=== PATIENT | female | born 1950 | race Caucasian/White ===

== ENCOUNTER 2017-10-19 15:41 | Emergency (ER) | payer MEDICARE, OTHER ==
--- NOTE | 2017-10-19 17:08 | EDM.PDOC ---
ED HPI GENERAL MEDICAL PROBLEM - General Chief Complaint: Lower Extremity Injury/Pain Stated Complaint: FELL AND HURT RT ANKLE Time Seen by Provider: 10/19/17 17:04 Source of Information: Reports: Patient, Family, RN Notes Reviewed History Limitations: Reports: No Limitations - History of Present Illness INITIAL COMMENTS - FREE TEXT/NARRATIVE: 67-year-old female presents to the emergency department today with complaint of right ankle pain, she states she injured herself on a ladder earlier today when she slipped off the second rung. 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: - Infectious Disease History Infectious Disease History: Reports: Measles, Mumps Social & Family History - Tobacco Use Smoking Status *Q: Never Smoker - Caffeine Use Caffeine Use: Reports: Coffee - Recreational Drug Use Recreational Drug Use: No Review of Systems - Review of Systems Review Of Systems: See Below Musculoskeletal: Reports: Joint Pain (Right ankle pain) Skin: Reports: Bruising Neurological: Reports: No Symptoms ED EXAM, GENERAL - Physical Exam Exam: See Below Free Text/Narrative:: Examination of the right ankle I do appreciate some ecchymosis with some edema on the lateral malleolus she is tender to the touch over the lateral malleolus pedal pulse is +2 she cannot bear weight sensation is intact Exam Limited By: No Limitations General Appearance: Alert, WD/WN, No Apparent Distress Respiratory/Chest: No Respiratory Distress ED TRAUMA EXTREMITY PROCEDURES - Splinting Right Lower Extremity Splint Site: Ankle Pre-Procedure NV Status: Normal Post-Procedure NV Status: Normal Splint Material: Fiberglass Splint Design: Posterior Applied & Form Fitted By: Provider Provider Post-Splint Application NV Check: NV Status Normal, Good Position Complications: No Course - Vital Signs Last Recorded V/S: Last Vital Signs Temp 95.7 F 10/19/17 17:03 Pulse 80 10/19/17 17:03 Resp 16 10/19/17 17:03 BP 122/63 10/19/17 17:03 Pulse Ox 98 10/19/17 17:03 - Orders/Labs/Meds Orders: Active Orders 24 hr Category Date Time Status Ankle Min 3V Rt [CR] Stat Exams 10/19/17 17:05 Taken Departure - Departure Time of Disposition: 18:02 Disposition: Home, Self-Care 01 Condition: Good Clinical Impression: Fracture of tibia, distal, right, closed Qualifiers: Encounter type: initial encounter Fracture morphology: other fracture Qualified Code(s): S82.391A - Other fracture of lower end of right tibia, initial encounter for closed fracture - Discharge Information Referrals: Pati Dunham MD [Primary Care Provider] - Forms: ED Department Discharge Additional Instructions: Please follow-up with orthopedics on Wednesday for further evaluation, continue use Tylenol or Motrin as needed for pain control, use hydrocodone for breakthrough pain, do not exceed 4000 mg of Tylenol in a 24-hour period - My Orders Last 24 Hours: My Active Orders 10/19/17 17:05 Ankle Min 3V Rt [CR] Stat - Assessment/Plan Last 24 Hours: My Active Orders 10/19/17 17:05 Ankle Min 3V Rt [CR] Stat Plan: Assessment Acuity = acute Site and laterality = fracture distal tibia closed right Etiology = secondary to twisting injury follow-up ladder trauma Manifestations = none Location of injury = Home Lab values = x-ray describes fracture above Plan Called discussed case with Dr. Camilo orthopedics he agreed to evaluate her in clinic follow-up on Wednesday she was placed in a posterior splint hydrocodone 5/ 325 one tab by mouth 3 times a day when necessary total #6 provided for pain control This note was dictated using [employer] voice recognition software please call with any questions on syntax or grammar.
--- NOTE | 2017-10-20 13:08 | CR ---
Ankle Min 3V Rt INDICATION: pain twist FINDINGS: Acute, minimally displaced, intra-articular fracture through the medial malleolus. Soft tis saurav swelling about the right ankle.
== END 2017-10-19 18:13 | disposition home or self-care (01) ==
LOC: JP.ED 15:41
DX: S82.391A Other fracture of lower end of right tibia, initial encounter for closed fracture (principal); Z88.8 Allergy status to other drugs, medicaments and biological substances; W11.XXXA Fall on and from ladder, initial encounter
CPT/HCPCS: 29515; 73610-26-RT; 73610-RT; 99284

== ENCOUNTER 2019-11-16 08:50 | Emergency (ER) | payer MEDICARE, OTHER ==
[2019-11-16] MEDS ORDERED: Ketorolac 60 MG/2 ML SDV IM ONE (09:19)
--- NOTE | 2019-11-16 09:22 | EDM.PDOC ---
ED HPI GENERAL MEDICAL PROBLEM - General Chief Complaint: General Stated Complaint: BODY ACHES, FEVER 100.3, SORE THROAT, HEADACHES Time Seen by Provider: 11/16/19 09:11 Source of Information: Reports: Patient, RN Notes Reviewed History Limitations: Reports: No Limitations - History of Present Illness INITIAL COMMENTS - FREE TEXT/NARRATIVE: 69-year-old female presents emergency department today complaint of fever body aches and sore throat, she has been ill for about 4 days poor oral intake she did have a potential exposure as she attended the about 7 days ago estim ate 100 people at this . Generalized Pain Score (Numeric/FACES): 10 - Related Data Allergies Allergy/AdvReac Type Severity Reaction Status Date / Time benzoin Allergy Blisters Verified 11/16/19 09:00 Home Meds: Home Meds Citalopram [Citalopram HBr] 10 mg PO DAILY 10/19/17 [History] Past Medical History HEENT History: Reports: Impaired Vision [employer] History: Reports: Musculoskeletal History: Reports: Fracture Other Musculoskeletal History: right distal tib FX - Infectious Disease History Infectious Disease History: Reports: Chicken Pox Social & Family History - Tobacco Use Smoking Status *Q: Never Smoker Second Hand Smoke Exposure: No - Caffeine Use Caffeine Use: Reports: Coffee, Tea - Alcohol Use Days Per Week of Alcohol Use: 4 Number of Drinks Per Day: 1 Total Drinks Per Week: 4 - Recreational Drug Use Recreational Drug Use: No ED ROS GENERAL - Review of Systems Review Of Systems: See Below Constitutional: Reports: Fever, Chills HEENT: Reports: Throat Pain Respiratory: Reports: No Symptoms Cardiovascular: Reports: No Symptoms GI/Abdominal: Reports: No Symptoms : Reports: No Symptoms Musculoskeletal: Reports: Muscle Pain (Body aches) ED EXAM, GENERAL - Physical Exam Exam: See Below Exam Limited By: No Limitations General Appearance: Alert, WD/WN, No Apparent Distress Eye Exam: Bilateral Eye: PERRL Ears: Normal External Exam, Normal Canal, Hearing Grossly Normal, Normal TMs Nose: Normal Inspection, Normal Mucosa, No Blood Throat/Mouth: Normal Inspection, Normal Lips, Normal Teeth, Normal Gums, Normal Oropharynx, Normal Voice, No Airway Compromise, Other (Pemphigoid superior pal ate) Head: Atraumatic, Normocephalic Neck: Normal Inspection, Supple, Non-Tender, Full Range of Motion Respiratory/Chest: No Respiratory Distress, Lungs Clear, Normal Breath Sounds, No Accessory Muscle Use, Chest Non-Tender Cardiovascular: No Murmur, Tachycardia GI/Abdominal: Soft, Non-Tender Back Exam: Normal Inspection, Full Range of Motion. No: CVA Tenderness (R), CVA Tenderness (L) Extremities: No Pedal Edema Course - Vital Signs Last Recorded V/S: Last Vital Signs Temp 98.6 F 11/16/19 10:32 Pulse 90 11/16/19 10:32 Resp 22 H 11/16/19 10:32 BP 96/51 L 11/16/19 10:32 Pulse Ox 91 L 11/16/19 10:32 - Orders/Labs/Meds Orders: Active Orders 24 hr Category Date Time Status CORONAVIRUS COVID-19, CANDY Stat Lab 11/16/19 09:30 Received Isolation [COMM] Routine Oth 11/16/19 09:18 Ordered Labs: Laboratory Tests 11/16/19 11/16/19 11/16/19 Range/Units 09:17 09:34 09:34 WBC 4.5 (4.5-11.0) K/uL RBC 3.96 (3.30-5.50) M/uL Hgb 12.4 (12.0-15.0) g/dL Hct 35.8 L (36.0-48.0) % MCV 90 (80-98) fL MCH 31 (27-31) pg MCHC 35 (32-36) % Plt Count 64 L (150-400) K/uL Add Manual Diff Yes Neutrophils % (Manual) 43 (36-66) % Band Neutrophils % 54 H (5-11) % Lymphocytes % (Manual) 1 L (24-44) % Metamyelocytes % 2 % Sodium (140-148) mmol/L Potassium (3.6-5.2) mmol/L Chloride (100-108) mmol/L Carbon Dioxide (21-32) mmol/L Anion Gap (5.0-14.0) mmol/L BUN (7-18) mg/dL Creatinine (0.6-1.0) mg/dL Est Cr Clr Drug Dosing mL/min Estimated GFR (MDRD) (>60) Glucose (74-106) mg/dL Lactic Acid (0.4-2.0) mmol/L Calcium (8.5-10.1) mg/dL Total Bilirubin (0.2-1.0) mg/dL AST (15-37) U/L ALT (12-78) U/L Alkaline Phosphatase (46-116) U/L Lactate Dehydrogenase 472 H (82-234) U/L C-Reactive Protein > 25.00 H (0.0-0.3) mg/dL Total Protein (6.4-8.2) g/dL Albumin (3.4-5.0) g/dL Globulin (2.3-3.5) g/dL Albumin/Globulin Ratio (1.2-2.2) Procalcitonin 5.32 H* ng/mL 11/16/19 11/16/19 Range/Units 09:34 09:46 WBC (4.5-11.0) K/uL RBC (3.30-5.50) M/uL Hgb (12.0-15.0) g/dL Hct (36.0-48.0) % MCV (80-98) fL MCH (27-31) pg MCHC (32-36) % Plt Count (150-400) K/uL Add Manual Diff Neutrophils % (Manual) (36-66) % Band Neutrophils % (5-11) % Lymphocytes % (Manual) (24-44) % Metamyelocytes % % Sodium 131 L (140-148) mmol/L Potassium 3.2 L (3.6-5.2) mmol/L Chloride 95 L (100-108) mmol/L Carbon Dioxide 26 (21-32) mmol/L Anion Gap 13.2 (5.0-14.0) mmol/L BUN 17 (7-18) mg/dL Creatinine 1.2 H (0.6-1.0) mg/dL Est Cr Clr Drug Dosing 42.00 mL/min Estimated GFR (MDRD) 45 L (>60) Glucose 153 H (74-106) mg/dL Lactic Acid 2.3 H (0.4-2.0) mmol/L Calcium 8.1 L (8.5-10.1) mg/dL Total Bilirubin 2.0 H (0.2-1.0) mg/dL AST 101 H (15-37) U/L ALT 93 H (12-78) U/L Alkaline Phosphatase 122 H (46-116) U/L Lactate Dehydrogenase (82-234) U/L C-Reactive Protein (0.0-0.3) mg/dL Total Protein 6.2 L (6.4-8.2) g/dL Albumin 3.2 L (3.4-5.0) g/dL Globulin 3.0 (2.3-3.5) g/dL Albumin/Globulin Ratio 1.1 L (1.2-2.2) Procalcitonin ng/mL Meds: Medications Discontinued Medications Generic Name Dose Route Start Last Admin Trade Name Cherry PRN Reason Stop Dose Admin Ketorolac Tromethamine 60 mg 11/16/19 09:19 11/16/19 09:34 Toradol IM 11/16/19 09:20 60 mg ONETIME ONE Administration Departure - Departure Time of Disposition: 10:46 Disposition: Home, Self-Care 01 Condition: Fair Clinical Impression: Body aches - Discharge Information Referrals: PCP,None [Primary Care Provider] - Forms: ED Department Discharge Additional Instructions: Take full course of antibiotics use Tylenol Motrin as needed, please followup with your primary care provider in 3-5 days if not better, please call return to the emergency department with worsening of symptoms. Sepsis Event Note (ED) - Evaluation Sepsis Screening Result: Possible Sepsis Risk - Focused Exam Vital Signs: Vital Signs Temp Pulse Resp BP Pulse Ox 11/16/19 10:32 98.6 F 90 22 H 96/51 L 91 L 11/16/19 09:08 99.4 F 101 H 21 H 108/54 L 97 11/16/19 08:56 99.4 F 101 H 21 H 108/54 L 97 - My Orders Last 24 Hours: My Active Orders 11/16/19 09:18 Isolation [COMM] Routine 11/16/19 09:30 CORONAVIRUS COVID-19, CANDY Stat - Assessment/Plan Last 24 Hours: My Active Orders 11/16/19 09:18 Isolation [COMM] Routine 11/16/19 09:30 CORONAVIRUS COVID-19, CANDY Stat Plan: Assessment Acuity = acute Site and laterality = tickborne illness 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 Manifestations = fever, body aches Location of injury = Home Lab values = White count normal at 4.5 platelets low at 64 consistent t hrombocytopenia sodium low at 131 consistent hyponatremia potassium low at 3.2 consistent with hypokalemia creatinine elevated 1.2 consistent with acute renal failure stage G3 a lactic acid slightly elevated 2.3 calcium low at 8.1 consistent with hypocalcemia total bilirubin elevated 2.0 consistent with hyperbilirubinemia AST 101 ALT 93 consistent with elevated liver enzymes elevated LDH at 472 CRP markedly elevated greater than 25 procalcitonin elevated 5.37 chest x-ray reveals no acute process COVID is pending Plan I did review lab work with her she had a possible exposure of COVID with a large gathering at a about a week ago however her lab work is more consistent with an anaplasmosis type picture therefore elected to treat her empirically doxycycline 100 mg p.o. twice daily x14 days when the results of the COVID test become available we will contact her if it is positive she will stop the antibiotics if it is negative recommend she continue the antibiotics follow-up primary care in 5 to 7 days if no improvement This note was dictated using [employer] voice recognition software please call with any questions on syntax or grammar.
--- NOTE | 2019-11-16 10:14 | CR ---
CHEST: 2 view CLINICAL HISTORY:Fever COMPARISON:None FINDINGS: The heart size, pulmonary vascularity and hilar structures are normal. No infiltrate effusion or pneumothorax is seen. There are atherosclerotic changes in the aorta.. There is flattening of the hemidiaphragms. IMPRESSION: No acute cardiopulmonary process. Hyperaeration
== END 2019-11-16 11:04 | disposition home or self-care (01) ==
LOC: JP.ED 08:50
DX: R52 Pain, unspecified (principal); Z91.09 Other allergy status, other than to drugs and biological substances; Z79.899 Other long term (current) drug therapy
CPT/HCPCS: 36415; 71046; 80053; 83605; 83615; 84145; 85025; 86140; 87804; 96372; 99283; J1885; U0002

== ENCOUNTER 2019-11-17 15:01 | Inpatient (IN) | payer MEDICARE, OTHER ==
[2019-11-17] MEDS ORDERED: Lactated Ringers 1,000 ML IV ONE (16:03)
[2019-11-17] MEDS ORDERED: Doxycycline 100 MG in Sodium Chloride 0.9% 100 ML IV ONE (16:04)
[2019-11-17] MEDS ORDERED: Sodium Chloride 0.9% 10 ML Syringe FLUSH PRN (16:04)
[2019-11-17] MEDS ORDERED: Ondansetron 4 MG/2 ML SDV IVPUSH ONE (16:04)
--- NOTE | 2019-11-17 16:09 | EDM.PDOC ---
ED HPI GENERAL MEDICAL PROBLEM - General Chief Complaint: Gastrointestinal Problem Stated Complaint: VOMITING, FEVER, DIARRHEA Time Seen by Provider: 11/17/19 15:53 Source of Information: Reports: Patient, Family, Old Records, RN Notes Reviewed History Limitations: Reports: No Limitations - History of Present Illness INITIAL COMMENTS - FREE TEXT/NARRATIVE: 69-year-old female presents emergency department a complaint of nausea and vomiting unable to keep fluids down. I had the opportunity to see her yesterday please see prior note for details briefly she has been ill for several days fever sore throat body aches she had attended a large gathering about a week ago yesterday extensive blood work suspicious for tickborne illness COVID is pending influenza was negative. Elected to treat empirically however she is only been able to keep 1 dose of doxycycline down because of the nausea and vomiting which is persisted. - Related Data Allergies Allergy/AdvReac Type Severity Reaction Status Date / Time benzoin Allergy Blisters Verified 11/17/19 15:33 Home Meds: Home Meds Citalopram [Citalopram HBr] 10 mg PO DAILY 10/19/17 [History] Doxycycline [Vibramycin] 1 tab PO DAILY 11/17/19 [History] Past Medical History HEENT History: Reports: Impaired Vision [employer] History: Reports: Musculoskeletal History: Reports: Fracture Other Musculoskeletal History: right distal tib FX - Infectious Disease History Infectious Disease History: Reports: Chicken Pox Social & Family History - Tobacco Use Smoking Status *Q: Never Smoker - Caffeine Use Caffeine Use: Reports: Coffee, Tea ED ROS GENERAL - Review of Systems Review Of Systems: See Below Constitutional: Reports: Fever, Chills, Fatigue HEENT: Reports: Throat Pain, Throat Swelling Respiratory: Reports: No Symptoms Cardiovascular: Reports: No Symptoms GI/Abdominal: Reports: No Symptoms Musculoskeletal: Reports: Muscle Pain ED EXAM, GENERAL - Physical Exam Exam: See Below Exam Limited By: No Limitations General Appearance: Alert, WD/WN, No Apparent Distress Neck: Normal Inspection, Supple, Non-Tender, Full Range of Motion Respiratory/Chest: No Respiratory Distress, Lungs Clear, Normal Breath Sounds, No Accessory Muscle Use, Chest Non-Tender Cardiovascular: Regular Rate, Rhythm, No Murmur GI/Abdominal: Soft, Non-Tender Extremities: No Pedal Edema Course - Vital Signs Last Recorded V/S: Last Vital Signs Temp 97.4 F 11/17/19 15:42 Pulse 71 11/17/19 17:19 Resp 14 11/17/19 15:42 BP 119/54 L 11/17/19 17:19 Pulse Ox 96 11/17/19 17:19 - Orders/Labs/Meds Orders: Active Orders 24 hr Category Date Time Status Peripheral IV Care [RC] . DIRECTED Care 11/17/19 16:04 Active Potassium Chloride [KCL 20 MEQ in Water 100 ML] 20 meq Med 11/17/19 17:00 Active Premix Bag 1 bag IV ONETIME Sodium Chloride 0.9% [Saline Flush] Med 11/17/19 16:04 Active 10 ml FLUSH ASDIRECTED PRN Peripheral IV Insertion Adult [OM.PC] Urgent Oth 11/17/19 16:03 Ordered Medication Orders Potassium Chloride 20 meq/ (Premix) 100 mls @ 50 mls/hr IV ONETIME ONE Stop: 11/17/19 18:59 Last Admin: 11/17/19 17:36 Dose: 50 mls/hr Documented by: STELLA Sodium Chloride (Saline Flush) 10 ml FLUSH ASDIRECTED PRN PRN Reason: Keep Vein Open Last Admin: 11/17/19 16:27 Dose: 10 ml Documented by: STELLA Labs: Laboratory Tests 11/17/19 11/17/19 11/17/19 Range/Units 16:22 16:22 16:22 WBC 2.7 L (4.5-11.0) K/uL RBC 4.20 (3.30-5.50) M/uL Hgb 13.2 (12.0-15.0) g/dL Hct 37.1 (36.0-48.0) % MCV 88 (80-98) fL MCH 31 (27-31) pg MCHC 36 (32-36) % Plt Count 40 L (150-400) K/uL Add Manual Diff Yes Neutrophils % (Manual) 68 H (36-66) % Band Neutrophils % 10 (5-11) % Lymphocytes % (Manual) 12 L (24-44) % Monocytes % (Manual) 10 H (2-6) % Sodium 133 L (140-148) mmol/L Potassium 2.8 L* (3.6-5.2) mmol/L Chloride 95 L (100-108) mmol/L Carbon Dioxide 29 (21-32) mmol/L Anion Gap 11.8 (5.0-14.0) mmol/L BUN 21 H (7-18) mg/dL Creatinine 1.0 (0.6-1.0) mg/dL Est Cr Clr Drug Dosing 50.41 mL/min Estimated GFR (MDRD) 55 L (>60) Glucose 101 (74-106) mg/dL Lactic Acid 1.0 (0.4-2.0) mmol/L Calcium 8.3 L (8.5-10.1) mg/dL Magnesium (1.8-2.4) mg/dL Total Bilirubin 2.1 H (0.2-1.0) mg/dL AST 129 H (15-37) U/L ALT 140 H (12-78) U/L Alkaline Phosphatase 309 H D (46-116) U/L Lactate Dehydrogenase (82-234) U/L C-Reactive Protein (0.0-0.3) mg/dL Total Protein 6.4 (6.4-8.2) g/dL Albumin 3.3 L (3.4-5.0) g/dL Globulin 3.1 (2.3-3.5) g/dL Albumin/Globulin Ratio 1.1 L (1.2-2.2) Procalcitonin ng/mL 11/17/19 11/17/19 11/17/19 Range/Units 16:22 16:22 16:22 WBC (4.5-11.0) K/uL RBC (3.30-5.50) M/uL Hgb (12.0-15.0) g/dL Hct (36.0-48.0) % MCV (80-98) fL MCH (27-31) pg MCHC (32-36) % Plt Count (150-400) K/uL Add Manual Diff Neutrophils % (Manual) (36-66) % Band Neutrophils % (5-11) % Lymphocytes % (Manual) (24-44) % Monocytes % (Manual) (2-6) % Sodium (140-148) mmol/L Potassium (3.6-5.2) mmol/L Chloride (100-108) mmol/L Carbon Dioxide (21-32) mmol/L Anion Gap (5.0-14.0) mmol/L BUN (7-18) mg/dL Creatinine (0.6-1.0) mg/dL Est Cr Clr Drug Dosing mL/min Estimated GFR (MDRD) (>60) Glucose (74-106) mg/dL Lactic Acid (0.4-2.0) mmol/L Calcium (8.5-10.1) mg/dL Magnesium (1.8-2.4) mg/dL Total Bilirubin (0.2-1.0) mg/dL AST (15-37) U/L ALT (12-78) U/L Alkaline Phosphatase (46-116) U/L Lactate Dehydrogenase 483 H (82-234) U/L C-Reactive Protein 26.08 H (0.0-0.3) mg/dL Total Protein (6.4-8.2) g/dL Albumin (3.4-5.0) g/dL Globulin (2.3-3.5) g/dL Albumin/Globulin Ratio (1.2-2.2) Procalcitonin 5.58 H* ng/mL 11/17/19 Range/Units 17:26 WBC (4.5-11.0) K/uL RBC (3.30-5.50) M/uL Hgb (12.0-15.0) g/dL Hct (36.0-48.0) % MCV (80-98) fL MCH (27-31) pg MCHC (32-36) % Plt Count (150-400) K/uL Add Manual Diff Neutrophils % (Manual) (36-66) % Band Neutrophils % (5-11) % Lymphocytes % (Manual) (24-44) % Monocytes % (Manual) (2-6) % Sodium (140-148) mmol/L Potassium (3.6-5.2) mmol/L Chloride (100-108) mmol/L Carbon Dioxide (21-32) mmol/L Anion Gap (5.0-14.0) mmol/L BUN (7-18) mg/dL Creatinine (0.6-1.0) mg/dL Est Cr Clr Drug Dosing mL/min Estimated GFR (MDRD) (>60) Glucose (74-106) mg/dL Lactic Acid (0.4-2.0) mmol/L Calcium (8.5-10.1) mg/dL Magnesium 2.1 (1.8-2.4) mg/dL Total Bilirubin (0.2-1.0) mg/dL AST (15-37) U/L ALT (12-78) U/L Alkaline Phosphatase (46-116) U/L Lactate Dehydrogenase (82-234) U/L C-Reactive Protein (0.0-0.3) mg/dL Total Protein (6.4-8.2) g/dL Albumin (3.4-5.0) g/dL Globulin (2.3-3.5) g/dL Albumin/Globulin Ratio (1.2-2.2) Procalcitonin ng/mL Meds: Medications Generic Name Dose Route Start Last Admin Trade Name Freq PRN Reason Stop Dose Admin Potassium Chloride 20 meq/ 100 mls @ 50 mls/hr 11/17/19 17:00 11/17/19 17:36 Premix IV 11/17/19 18:59 50 mls/hr ONETIME ONE Administration Sodium Chloride 10 ml 11/17/19 16:04 11/17/19 16:27 Saline Flush FLUSH 10 ml ASDIRECTED PRN Administration Keep Vein Open Discontinued Medications Generic Name Dose Route Start Last Admin Trade Name Freq PRN Reason Stop Dose Admin Lactated Ringer's 1,000 mls @ 999 mls/hr 11/17/19 16:03 11/17/19 16:27 Ringers, Lactated IV 11/17/19 17:03 999 mls/hr BOLUS ONE Administration Doxycycline Hyclate 100 mg/ 100 mls @ 100 mls/hr 11/17/19 16:04 11/17/19 16:28 Sodium Chloride IV 11/17/19 17:03 100 mls/hr ONETIME ONE Administration Ondansetron HCl 4 mg 11/17/19 16:04 11/17/19 16:27 Zofran IVPUSH 11/17/19 16:05 4 mg ONETIME ONE Administration Potassium Chloride 40 meq 11/17/19 17:00 11/17/19 17:35 Klor-Con M20 PO 11/17/19 17:01 40 meq ONETIME ONE Administration Departure - Departure Time of Disposition: 18:07 Disposition: Admitted As Inpatient 67 Condition: Fair Clinical Impression: Anaplasmosis - Discharge Information Referrals: PCP,None [Primary Care Provider] - Forms: ED Department Discharge Sepsis Event Note (ED) - Evaluation Sepsis Screening Result: No Definite Risk - Focused Exam Vital Signs: Vital Signs Temp Pulse Resp BP Pulse Ox 11/17/19 17:19 71 119/54 L 96 11/17/19 15:42 97.4 F 72 14 115/72 98 - My Orders Last 24 Hours: My Active Orders 11/17/19 16:03 Peripheral IV Insertion Adult [OM.PC] Urgent 11/17/19 16:04 Peripheral IV Care [RC] . DIRECTED Sodium Chloride 0.9% [Saline Flush] 10 ml FLUSH ASDIRECTED PRN 11/17/19 17:00 Potassium Chloride [KCL 20 MEQ in Water 100 ML] 20 meq Premix Bag 1 bag IV ONETIME - Assessment/Plan Last 24 Hours: My Active Orders 11/17/19 16:03 Peripheral IV Insertion Adult [OM.PC] Urgent 11/17/19 16:04 Peripheral IV Care [RC] . DIRECTED Sodium Chloride 0.9% [Saline Flush] 10 ml FLUSH ASDIRECTED PRN 11/17/19 17:00 Potassium Chloride [KCL 20 MEQ in Water 100 ML] 20 meq Premix Bag 1 bag IV ONETIME Plan: Assessment Acuity = acute Site and laterality = tickborne illness suspicious for anaplasmosis Etiology = Ixodes scapularis Manifestations = fever, body aches, nausea, vomiting Location of injury = Home Lab values = WBC low at 2.7 consistent leukopenia, platelets low at 40 consistent with thrombocytopenia sodium low at 133 consistent hyponatremia potassium low at 2.8 consistent hypokalemia calcium slightly low at 8.3 consistent with hypocalcemia total bilirubin elevated 2.1 consistent with hyperbilirubinemia AST elevated 129 ALT elevated 140 consistent with elevated liver enzymes LDH elevated 483 CRP elevated 26.1 and procalcitonin elevated 5.58 Plan Call discussed case hospitalist on-call, agreed to come evaluate patient in the emergency department for admission at 1800 This note was dictated using [employer] voice recognition software please call with any questions on syntax or grammar.
[2019-11-17] MEDS ORDERED: Potassium Chloride 20 MEQ in Premix Bag 1 BAG IV ONE (17:00)
[2019-11-17] MEDS ORDERED: Potassium Chloride 20 MEQ Tab.ER PO ONE (17:00)
[2019-11-17] MEDS: Sodium Chloride 0.9% 1,000 ML IV SCH (19:04)
--- NOTE | 2019-11-17 19:34 | PCM.HP.2 ---
H&P History of Present Illness - General Date of Service: 11/17/19 Admit Problem/Dx: Admission Diagnosis/Problem Admission Diagnosis/Problem Tick-borne fever Source of Information: Patient, Provider, RN History Limitations: Reports: No Limitations - History of Present Illness Initial Comments - Free Text/Narative: Stated Complaint: VOMITING, FEVER, DIARRHEA History Limitations: Reports: No Limitations - History of Present Illness INITIAL COMMENTS 69-year-old female presents emergency department a complaint of nausea and vomiting unable to keep fluids down. I had the opportunity to see her yesterday please see prior note for details briefly she has been ill for several days fever sore throat body aches she had attended a large gathering about a week ago yesterday extensive blood work suspicious for tickborne illness COVID is pending influenza was negative. Elected to treat empirically however she is only been able to keep 1 dose of doxycycline down because of the nausea and vomiting which is persisted. ER Course Assessment Acuity = acute Site and laterality = tickborne illness suspicious for anaplasmosis Etiology = Ixodes scapularis Manifestations = fever, body aches, nausea, vomiting Lab values = WBC low at 2.7 consistent leukopenia, platelets low at 40 consistent with thrombocytopenia sodium low at 133 consistent hyponatremia potassium low at 2.8 consistent hypokalemia calcium slightly low at 8.3 consistent with hypocalcemia total bilirubin elevated 2.1 consistent with hyperbilirubinemia AST elevated 129 ALT elevated 140 consistent with elevated liver enzymes LDH elevated 483 CRP elevated 26.1 and procalcitonin elevated 5.58 Plan Call discussed case hospitalist on-call, agreed to come evaluate patient in the emergency department for admission at 1800 Onset of Symptoms: Reports: Gradual Symptom Onset Date: 11/13/19 Duration of Symptoms: Reports: Day(s):, Getting Worse Location: Reports: Generalized (nausea, vomiting, fever, chills, sore throat.) Severity: Severe Improves with: Reports: Rest Worsens with: Reports: None Context: Reports: Other (febrile illness for 5 days) Associated Symptoms: Reports: Fever/Chills, Nausea/Vomiting, Weakness - Related Data Allergies/Adverse Reactions: Allergies Allergy/AdvReac Type Severity Reaction Status Date / Time benzoin Allergy Blisters Verified 11/17/19 15:33 Home Medications: Home Meds Citalopram [Citalopram HBr] 10 mg PO DAILY 10/19/17 [History] Doxycycline [Vibramycin] 1 tab PO DAILY 11/17/19 [History] Past Medical History HEENT History: Reports: Impaired Vision [employer] ANALYST History: Reports: Musculoskeletal History: Reports: Fracture Other Musculoskeletal History: right distal tib FX - Infectious Disease History Infectious Disease History: Reports: Chicken Pox Social & Family History - Tobacco Use Smoking Status *Q: Never Smoker - Caffeine Use Caffeine Use: Reports: Coffee, Tea - Living Situation & Occupation Living situation: Reports: , with Family Occupation: Retired (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, , lives [address] in [place], has 3 grown sons.) H&P Review of Systems - Review of Systems: Review Of Systems: See Below General: Reports: Fever, Chills, Malaise, Weakness, Fatigue, Decreased Appetite HEENT: Reports: Sore Throat Pulmonary: Reports: No Symptoms Cardiovascular: Reports: No Symptoms Gastrointestinal: Reports: Abdominal Pain (mid to epigastric area from nausea and vomiting), Decreased Appetite, Nausea, Vomiting Genitourinary: Reports: No Symptoms Musculoskeletal: Reports: Muscle Pain, Muscle Stiffness Skin: Reports: Other (report skin is very painful touch.) Psychiatric: Reports: No Symptoms Neurological: Reports: No Symptoms Hematologic/Lymphatic: Reports: No Symptoms Immunologic: Reports: No Symptoms Exam - Exam Exam: See Below - Vital Signs Vital Signs: Last Vital Signs Temp 36.3 C 11/17/19 15:42 Pulse 71 11/17/19 17:19 Resp 14 11/17/19 15:42 BP 119/54 L 11/17/19 17:19 Pulse Ox 96 11/17/19 17:19 Weight: 61.235 kg - Exam Quality Assessment: DVT Prophylaxis General: Alert, Oriented, Cooperative, Mild Distress HEENT: PERRLA, Hearing Intact, Mucosa Moist & [place], Nares Patent, Normal Nasal Septum, Posterior Pharynx Clear, Conjunctiva Clear, EOMI, EACs Clear, TMs Clear Neck: Supple, Trachea Midline, 2 Lungs: Clear to Auscultation Cardiovascular: Regular Rate, Regular Rhythm, Normal S1, Normal S2 GI/Abdominal Exam: Normal Bowel Sounds, Soft, Non-Tender, No Organomegaly, No Distention, No Abnormal Bruit, No Mass (Female) Exam: Deferred Rectal (Female) Exam: Deferred Back Exam: Normal Inspection, Full Range of Motion Extremities: Normal Inspection, Normal Range of Motion, Non-Tender, No Pedal Edema, Normal Capillary Refill Skin: Warm, Dry, Intact Neurological: Reflexes Equal Bilateral, Strength Equal Bilateral Neuro Extensive - Mental Status: Alert, Oriented x3, Normal Mood/Affect, Normal Cognition Psychiatric: Alert, Normal Affect, Normal Mood - Patient Data Lab Results Last 24 hrs: Laboratory Results - last 24 hr 11/17/19 11/17/19 11/17/19 Range/Units 16:22 16:22 16:22 WBC 2.7 L (4.5-11.0) K/uL RBC 4.20 (3.30-5.50) M/uL Hgb 13.2 (12.0-15.0) g/dL Hct 37.1 (36.0-48.0) % MCV 88 (80-98) fL MCH 31 (27-31) pg MCHC 36 (32-36) % Plt Count 40 L (150-400) K/uL Add Manual Diff Yes Neutrophils % (Manual) 68 H (36-66) % Band Neutrophils % 10 (5-11) % Lymphocytes % (Manual) 12 L (24-44) % Monocytes % (Manual) 10 H (2-6) % Sodium 133 L (140-148) mmol/L Potassium 2.8 L* (3.6-5.2) mmol/L Chloride 95 L (100-108) mmol/L Carbon Dioxide 29 (21-32) mmol/L Anion Gap 11.8 (5.0-14.0) mmol/L BUN 21 H (7-18) mg/dL Creatinine 1.0 (0.6-1.0) mg/dL Est Cr Clr Drug Dosing 50.41 mL/min Estimated GFR (MDRD) 55 L (>60) Glucose 101 (74-106) mg/dL Lactic Acid 1.0 (0.4-2.0) mmol/L Calcium 8.3 L (8.5-10.1) mg/dL Magnesium (1.8-2.4) mg/dL Total Bilirubin 2.1 H (0.2-1.0) mg/dL AST 129 H (15-37) U/L ALT 140 H (12-78) U/L Alkaline Phosphatase 309 H D (46-116) U/L Lactate Dehydrogenase (82-234) U/L C-Reactive Protein (0.0-0.3) mg/dL Total Protein 6.4 (6.4-8.2) g/dL Albumin 3.3 L (3.4-5.0) g/dL Globulin 3.1 (2.3-3.5) g/dL Albumin/Globulin Ratio 1.1 L (1.2-2.2) Procalcitonin ng/mL 11/17/19 11/17/19 11/17/19 Range/Units 16:22 16:22 16:22 WBC (4.5-11.0) K/uL RBC (3.30-5.50) M/uL Hgb (12.0-15.0) g/dL Hct (36.0-48.0) % MCV (80-98) fL MCH (27-31) pg MCHC (32-36) % Plt Count (150-400) K/uL Add Manual Diff Neutrophils % (Manual) (36-66) % Band Neutrophils % (5-11) % Lymphocytes % (Manual) (24-44) % Monocytes % (Manual) (2-6) % Sodium (140-148) mmol/L Potassium (3.6-5.2) mmol/L Chloride (100-108) mmol/L Carbon Dioxide (21-32) mmol/L Anion Gap (5.0-14.0) mmol/L BUN (7-18) mg/dL Creatinine (0.6-1.0) mg/dL Est Cr Clr Drug Dosing mL/min Estimated GFR (MDRD) (>60) Glucose (74-106) mg/dL Lactic Acid (0.4-2.0) mmol/L Calcium (8.5-10.1) mg/dL Magnesium (1.8-2.4) mg/dL Total Bilirubin (0.2-1.0) mg/dL AST (15-37) U/L ALT (12-78) U/L Alkaline Phosphatase (46-116) U/L Lactate Dehydrogenase 483 H (82-234) U/L C-Reactive Protein 26.08 H (0.0-0.3) mg/dL Total Protein (6.4-8.2) g/dL Albumin (3.4-5.0) g/dL Globulin (2.3-3.5) g/dL Albumin/Globulin Ratio (1.2-2.2) Procalcitonin 5.58 H* ng/mL 11/17/19 Range/Units 17:26 WBC (4.5-11.0) K/uL RBC (3.30-5.50) M/uL Hgb (12.0-15.0) g/dL Hct (36.0-48.0) % MCV (80-98) fL MCH (27-31) pg MCHC (32-36) % Plt Count (150-400) K/uL Add Manual Diff Neutrophils % (Manual) (36-66) % Band Neutrophils % (5-11) % Lymphocytes % (Manual) (24-44) % Monocytes % (Manual) (2-6) % Sodium (140-148) mmol/L Potassium (3.6-5.2) mmol/L Chloride (100-108) mmol/L Carbon Dioxide (21-32) mmol/L Anion Gap (5.0-14.0) mmol/L BUN (7-18) mg/dL Creatinine (0.6-1.0) mg/dL Est Cr Clr Drug Dosing mL/min Estimated GFR (MDRD) (>60) Glucose (74-106) mg/dL Lactic Acid (0.4-2.0) mmol/L Calcium (8.5-10.1) mg/dL Magnesium 2.1 (1.8-2.4) mg/dL Total Bilirubin (0.2-1.0) mg/dL AST (15-37) U/L ALT (12-78) U/L Alkaline Phosphatase (46-116) U/L Lactate Dehydrogenase (82-234) U/L C-Reactive Protein (0.0-0.3) mg/dL Total Protein (6.4-8.2) g/dL Albumin (3.4-5.0) g/dL Globulin (2.3-3.5) g/dL Albumin/Globulin Ratio (1.2-2.2) Procalcitonin ng/mL Result Diagrams: 11/17/19 16:22 11/17/19 16:22 Sepsis Event Note - Evaluation Sepsis Screening Result: No Definite Risk - Focused Exam Vital Signs: Vital Signs Temp Pulse Resp BP Pulse Ox 11/17/19 17:19 71 119/54 L 96 11/17/19 15:42 36.3 C 72 14 115/72 98 Date Exam was Performed: 11/17/19 Time Exam was Performed: 22:40 - Problem List (1) Anaplasmosis SNOMED Code(s): 124618253 ICD Code: A77.49 - OTHER EHRLICHIOSIS Status: Acute Priority: High Current Visit: Yes Problem List Initiated/Reviewed/Updated: Yes Orders Last 24hrs: Active Orders 24 hr Category Date Time Status Patient Status Manage Transfer [TRANSFER] Routine ADT 11/17/19 18:59 Active Peripheral IV Care [RC] . DIRECTED Care 11/17/19 16:04 Active Citalopram [Celexa] Med 11/18/19 09:00 Active 10 mg PO DAILY Sodium Chloride 0.9% [Normal Saline] 1,000 ml Med 11/17/19 19:00 Active IV ASDIRECTED Sodium Chloride 0.9% [Saline Flush] Med 11/17/19 16:04 Active 10 ml FLUSH ASDIRECTED PRN Peripheral IV Insertion Adult [OM.PC] Urgent Oth 11/17/19 16:03 Ordered Resuscitation Status Routine Resus Stat 11/17/19 19:07 Ordered Medication Orders Citalopram Hydrobromide (Celexa) 10 mg PO DAILY ADONIS Sodium Chloride (Normal Saline) 1,000 mls @ 125 mls/hr IV ASDIRECTED ADONIS Last Admin: 11/17/19 19:04 Dose: 125 mls/hr Documented by: STELLA Sodium Chloride (Saline Flush) 10 ml FLUSH ASDIRECTED PRN PRN Reason: Keep Vein Open Last Admin: 11/17/19 16:27 Dose: 10 ml Documented by: STELLA Assessment/Plan Comment:: ASSESSMENT / PLAN: Anaplasmosis 69-year-old female presents emergency department a complaint of nausea and vomiting unable to keep fluids down. I had the opportunity to see her yesterday please see prior note for details briefly she has been ill for several days fever sore throat body aches she had attended a large gathering about a week ago yesterday extensive blood work suspicious for tickborne illness COVID is pending influenza was negative. Elected to treat empirically however she is only been able to keep 1 dose of doxycycline down because of the nausea and vomiting which is persisted. ER Course Assessment Acuity = acute Site and laterality = tickborne illness suspicious for anaplasmosis Etiology = Ixodes scapularis Manifestations = fever, body aches, nausea, vomiting Lab values = WBC low at 2.7 consistent leukopenia, platelets low at 40 consistent with thrombocytopenia sodium low at 133 consistent hyponatremia potassium low at 2.8 consistent hypokalemia calcium slightly low at 8.3 consistent with hypocalcemia total bilirubin elevated 2.1 consistent with hyperbilirubinemia AST elevated 129 ALT elevated 140 consistent with elevated liver enzymes LDH elevated 483 CRP elevated 26.1 and procalcitonin elevated 5.58 Plan Call discussed case hospitalist on-call, agreed to come evaluate patient in the emergency department for admission at 1800 ANAPLASMOSIS -Admit to [address] [place] [address] for further monitoring -IV Fluids for rehydration NS 125 mL per hour. -IV Antibiotic- IV Doxycycline 100mg IV every 12 hours -Tylenol, Motrin or Oxycodone for pain control -Advise to notify nurses of any fever or worsen pain -blood cultures x2 pending -And a.m. labs: CBC, BMP Maintenance issues -Orders home meds: chronic medication -Nutrition: regular diet -Bernal catheter not indicated -DVT: Lovenox 30 mg subcut daily -PPI- IV Protonix 40 mg daily CODE STATUS: FULL Admission status: Admit to [address] [place] [address] Admission justification. This patient will be admitted for inpatient services and is medically appropriate meeting medical necessity for inpatient admission as outlined in my documentation. I reasonably expect the patient will require inpatient services that span. Time over 2 midnights. I reasonably expect this patient to be discharged or transferred within 96 hours after admission to the critical access hospital. Disposition: home with Primary care provider: [facility] Hospitalist: Dr. Casiano - Mortality Measure Prognosis:: Good
[2019-11-17] MEDS ORDERED: Ondansetron 4 MG/2 ML SDV IV PRN (19:45)
[2019-11-17] MEDS ORDERED: Ketorolac 30 MG/ML SDV IVPUSH PRN ×2 (19:45→21:28)
[2019-11-17] MEDS ORDERED: Morphine 2 MG/ML Syringe IVPUSH PRN (19:45)
[2019-11-17] MEDS ORDERED: Pantoprazole 40 MG Vial IVPUSH SCH (19:45)
[2019-11-17] MEDS ORDERED: oxyCODONE 5 MG Tab PO PRN (19:45)
[2019-11-17] MEDS: Melatonin 3 MG Tab PO SCH (20:33)
[2019-11-17] MEDS: Acetaminophen 325 MG Tab PO PRN (23:24)
[2019-11-18] MEDS: Doxycycline 100 MG in Sodium Chloride 0.9% 100 ML IV SCH ×2 (03:12→16:22)
[2019-11-18] MEDS: Sodium Chloride 0.9% 1,000 ML IV SCH ×2 (04:50→12:46)
[2019-11-18] MEDS ORDERED: Enoxaparin 30 MG/0.3 ML Syringe SUBCUT SCH (09:00)
[2019-11-18] MEDS ORDERED: Potassium Chloride 20 MEQ Tab.ER PO ONE (09:30)
[2019-11-18] MEDS: Citalopram 10 MG Tab PO SCH (09:36)
[2019-11-18] MEDS: Ondansetron 4 MG Tab.DIS PO PRN (12:46)
--- NOTE | 2019-11-18 15:15 | PCM.PN ---
- General Info Date of Service: 11/18/19 Subjective Update: No acute events overnight following admission. Still has some myalgias and headache but these are little better. And diarrhea, especially when she eats. Labs are stable with persistent leukopenia and significant thrombocytopenia. Tick serologies are still pending. COVID19 testing was negative. She has been up and walking around some. Functional Status: Reports: Pain Controlled. Denies: Tolerating Diet - Review of Systems General: Reports: Fever, Weakness Gastrointestinal: Reports: Diarrhea, Nausea - Patient Data Vitals - Most Recent: Last Vital Signs Temp 36.5 C 11/18/19 10:49 Pulse 69 11/18/19 10:49 Resp 16 11/18/19 10:49 BP 115/51 L 11/18/19 10:49 Pulse Ox 99 11/18/19 10:49 Weight - Most Recent: 61.235 kg I&O - Last 24 Hours: Intake & Output 11/18/19 11/18/19 11/18/19 06:59 14:59 22:59 Intake Total 1624 2200 Output Total 1725 1100 Balance -101 1100 Lab Results Last 24 Hours: Laboratory Results - last 24 hr 11/17/19 11/17/19 11/17/19 Range/Units 16:22 16:22 16:22 WBC 2.7 L (4.5-11.0) K/uL RBC 4.20 (3.30-5.50) M/uL Hgb 13.2 (12.0-15.0) g/dL Hct 37.1 (36.0-48.0) % MCV 88 (80-98) fL MCH 31 (27-31) pg MCHC 36 (32-36) % Plt Count 40 L (150-400) K/uL Neut % (Auto) (36-66) % Lymph % (Auto) (24-44) % [place] % (Auto) (2-6) % Eos % (Auto) (2-4) % Baso % (Auto) (0-1) % Add Manual Diff Yes Neutrophils % (Manual) 68 H (36-66) % Band Neutrophils % 10 (5-11) % Lymphocytes % (Manual) 12 L (24-44) % Monocytes % (Manual) 10 H (2-6) % Sodium 133 L (140-148) mmol/L Potassium 2.8 L* (3.6-5.2) mmol/L Chloride 95 L (100-108) mmol/L Carbon Dioxide 29 (21-32) mmol/L Anion Gap 11.8 (5.0-14.0) mmol/L BUN 21 H (7-18) mg/dL Creatinine 1.0 (0.6-1.0) mg/dL Est Cr Clr Drug Dosing 50.41 mL/min Estimated GFR (MDRD) 55 L (>60) Glucose 101 (74-106) mg/dL Lactic Acid 1.0 (0.4-2.0) mmol/L Calcium 8.3 L (8.5-10.1) mg/dL Magnesium (1.8-2.4) mg/dL Total Bilirubin 2.1 H (0.2-1.0) mg/dL AST 129 H (15-37) U/L ALT 140 H (12-78) U/L Alkaline Phosphatase 309 H D (46-116) U/L Lactate Dehydrogenase (82-234) U/L C-Reactive Protein (0.0-0.3) mg/dL Total Protein 6.4 (6.4-8.2) g/dL Albumin 3.3 L (3.4-5.0) g/dL Globulin 3.1 (2.3-3.5) g/dL Albumin/Globulin Ratio 1.1 L (1.2-2.2) Procalcitonin ng/mL 11/17/19 11/17/19 11/17/19 Range/Units 16:22 16:22 16:22 WBC (4.5-11.0) K/uL RBC (3.30-5.50) M/uL Hgb (12.0-15.0) g/dL Hct (36.0-48.0) % MCV (80-98) fL MCH (27-31) pg MCHC (32-36) % Plt Count (150-400) K/uL Neut % (Auto) (36-66) % Lymph % (Auto) (24-44) % [place] % (Auto) (2-6) % Eos % (Auto) (2-4) % Baso % (Auto) (0-1) % Add Manual Diff Neutrophils % (Manual) (36-66) % Band Neutrophils % (5-11) % Lymphocytes % (Manual) (24-44) % Monocytes % (Manual) (2-6) % Sodium (140-148) mmol/L Potassium (3.6-5.2) mmol/L Chloride (100-108) mmol/L Carbon Dioxide (21-32) mmol/L Anion Gap (5.0-14.0) mmol/L BUN (7-18) mg/dL Creatinine (0.6-1.0) mg/dL Est Cr Clr Drug Dosing mL/min Estimated GFR (MDRD) (>60) Glucose (74-106) mg/dL Lactic Acid (0.4-2.0) mmol/L Calcium (8.5-10.1) mg/dL Magnesium (1.8-2.4) mg/dL Total Bilirubin (0.2-1.0) mg/dL AST (15-37) U/L ALT (12-78) U/L Alkaline Phosphatase (46-116) U/L Lactate Dehydrogenase 483 H (82-234) U/L C-Reactive Protein 26.08 H (0.0-0.3) mg/dL Total Protein (6.4-8.2) g/dL Albumin (3.4-5.0) g/dL Globulin (2.3-3.5) g/dL Albumin/Globulin Ratio (1.2-2.2) Procalcitonin 5.58 H* ng/mL 11/17/19 11/18/19 11/18/19 Range/Units 17:26 04:40 04:40 WBC 2.5 L (4.5-11.0) K/uL RBC 3.89 (3.30-5.50) M/uL Hgb 12.1 (12.0-15.0) g/dL Hct 34.9 L (36.0-48.0) % MCV 90 (80-98) fL MCH 31 (27-31) pg MCHC 35 (32-36) % Plt Count 36 L (150-400) K/uL Neut % (Auto) 45 (36-66) % Lymph % (Auto) 37 (24-44) % [place] % (Auto) 13 H (2-6) % Eos % (Auto) 0 L (2-4) % Baso % (Auto) 5 H (0-1) % Add Manual Diff Neutrophils % (Manual) (36-66) % Band Neutrophils % (5-11) % Lymphocytes % (Manual) (24-44) % Monocytes % (Manual) (2-6) % Sodium 140 (140-148) mmol/L Potassium 3.2 L (3.6-5.2) mmol/L Chloride 105 (100-108) mmol/L Carbon Dioxide 27 (21-32) mmol/L Anion Gap 11.2 (5.0-14.0) mmol/L BUN 14 (7-18) mg/dL Creatinine 0.9 (0.6-1.0) mg/dL Est Cr Clr Drug Dosing 56.00 mL/min Estimated GFR (MDRD) > 60 (>60) Glucose 92 (74-106) mg/dL Lactic Acid (0.4-2.0) mmol/L Calcium 7.7 L (8.5-10.1) mg/dL Magnesium 2.1 (1.8-2.4) mg/dL Total Bilirubin (0.2-1.0) mg/dL AST (15-37) U/L ALT (12-78) U/L Alkaline Phosphatase (46-116) U/L Lactate Dehydrogenase (82-234) U/L C-Reactive Protein (0.0-0.3) mg/dL Total Protein (6.4-8.2) g/dL Albumin (3.4-5.0) g/dL Globulin (2.3-3.5) g/dL Albumin/Globulin Ratio (1.2-2.2) Procalcitonin ng/mL Med Orders - Current: Current Medications Acetaminophen (Tylenol) 650 mg PO Q4H PRN PRN Reason: Pain (Mild 1-3)/fever Last Admin: 11/17/19 23:24 Dose: 650 mg Documented by: Citalopram Hydrobromide (Celexa) 10 mg PO DAILY COUNTS INCLUDE 234 BEDS AT THE [facility] Last Admin: 11/18/19 09:36 Dose: 10 mg Documented by: Doxycycline Hyclate 100 mg/ (Sodium Chloride) 100 mls @ 100 mls/hr IV Q12H ADONIS Last Admin: 11/18/19 03:12 Dose: 100 mls/hr Documented by: Potassium Chloride/Sodium Chloride (Normal Saline With 20 Meq Kcl) 1,000 mls @ 100 mls/hr IV ASDIRECTED COUNTS INCLUDE 234 BEDS AT THE [facility] Ketorolac Tromethamine (Toradol) 15 mg IVPUSH Q6H PRN PRN Reason: Pain (moderate 4-6) Stop: 11/22/19 21:29 Last Admin: 11/17/19 22:11 Dose: 15 mg Documented by: Melatonin (Melatonin) 6 mg PO BEDTIME ADONIS Last Admin: 11/17/19 20:33 Dose: 6 mg Documented by: Morphine Sulfate (Morphine) 2 mg IVPUSH Q2H PRN PRN Reason: Pain (severe 7-10) Ondansetron HCl (Zofran Odt) 4 mg PO Q6H PRN PRN Reason: Nausea able to take PO Last Admin: 11/18/19 12:46 Dose: 4 mg Documented by: Ondansetron HCl (Zofran) 4 mg IV Q4H PRN PRN Reason: Nausea/Vomiting Oxycodone HCl (Oxycodone) 5 mg PO Q4H PRN PRN Reason: Pain (moderate 4-6) Sodium Chloride (Saline Flush) 10 ml FLUSH ASDIRECTED PRN PRN Reason: Keep Vein Open Last Admin: 11/17/19 16:27 Dose: 10 ml Documented by: Discontinued Medications Enoxaparin Sodium (Lovenox) 30 mg SUBCUT DAILY COUNTS INCLUDE 234 BEDS AT THE [facility] Lactated Ringer's (Ringers, Lactated) 1,000 mls @ 999 mls/hr IV BOLUS ONE Stop: 11/17/19 17:03 Last Admin: 11/17/19 16:27 Dose: 999 mls/hr Documented by: Doxycycline Hyclate 100 mg/ (Sodium Chloride) 100 mls @ 100 mls/hr IV ONETIME ONE Stop: 11/17/19 17:03 Last Admin: 11/17/19 16:28 Dose: 100 mls/hr Documented by: Potassium Chloride 20 meq/ (Premix) 100 mls @ 50 mls/hr IV ONETIME ONE Stop: 11/17/19 18:59 Last Admin: 11/17/19 17:36 Dose: 50 mls/hr Documented by: Sodium Chloride (Normal Saline) 1,000 mls @ 125 mls/hr IV ASDIRECTED COUNTS INCLUDE 234 BEDS AT THE [facility] Last Admin: 11/18/19 12:46 Dose: 125 mls/hr Documented by: Ketorolac Tromethamine (Toradol) 30 mg IVPUSH Q6H PRN PRN Reason: Pain (moderate 4-6) Ondansetron HCl (Zofran) 4 mg IVPUSH ONETIME ONE Stop: 11/17/19 16:05 Last Admin: 11/17/19 16:27 Dose: 4 mg Documented by: Pantoprazole Sodium (Protonix Iv) 40 mg IVPUSH DAILY COUNTS INCLUDE 234 BEDS AT THE [facility] Last Admin: 11/17/19 20:17 Dose: 40 mg Documented by: Pantoprazole Sodium (Protonix Iv) 40 mg IVPUSH Q24H COUNTS INCLUDE 234 BEDS AT THE [facility] Potassium Chloride (Klor-Con M20) 40 meq PO ONETIME ONE Stop: 11/17/19 17:01 Last Admin: 11/17/19 17:35 Dose: 40 meq Documented by: Potassium Chloride (Klor-Con M20) 40 meq PO ONETIME ONE Stop: 11/18/19 09:31 Last Admin: 11/18/19 09:36 Dose: 40 meq Documented by: - Exam Quality Assessment: No: Supplemental Oxygen General: Alert, Oriented, Cooperative, No Acute Distress Lungs: Normal Respiratory Effort GI/Abdominal Exam: Soft, No Distention Extremities: No Pedal Edema Skin: Warm, Dry Psy/Mental Status: Alert, Normal Affect Sepsis Event Note - Evaluation Sepsis Screening Result: No Definite Risk - Focused Exam Vital Signs: Vital Signs Temp Pulse Pulse Resp BP Pulse Ox 11/18/19 10:49 36.5 C 69 16 115/51 L 99 11/18/19 07:44 36.2 C 70 16 128/64 97 11/18/19 07:20 97 Date Exam was Performed: 11/18/19 Time Exam was Performed: 16:04 - Problem List Review Problem List Initiated/Reviewed/Updated: Yes - My Orders Last 24 Hours: My Active Orders 11/18/19 15:13 Discontinue Telemetry Monitoring [Cardiac Monitoring Discontinue] [RC] Click to Edit 11/18/19 15:15 NS + KCl 20mEq/L [Normal Saline with 20 mEq KCl] 1,000 ml IV ASDIRECTED 11/19/19 05:00 BASIC METABOLIC PANEL,BMP [CHEM] Timed CBC W/O DIFF,HEMOGRAM [HEME] Timed (1) - Plan Plan:: ASSESSMENT / PLAN: ANAPLASMOSIS-symptoms and laboratory studies fit well. Serology testing is pending. COVID19 testing was negative. -Continue IV fluids -Continue IV doxycycline -Symptomatic management of pain and nausea -Advance diet and activity as tolerated -Follow-up serologies Maintenance issues -Nutrition: regular diet -Bernal catheter not indicated -DVT: Patient is ambulatory. Pharmacological prophylaxis contraindicated with thrombocytopenia -GI-PPI Disposition: home with Luis Casiano MD
[2019-11-18] MEDS: NS + KCl 20mEq/L 1,000 ML IV SCH (16:29)
[2019-11-18] MEDS ORDERED: Pantoprazole 40 MG Vial IVPUSH SCH (20:00)
[2019-11-18] MEDS: Melatonin 3 MG Tab PO SCH (20:59)
[2019-11-18] MEDS: Acetaminophen 325 MG Tab PO PRN (23:22)
[2019-11-19] MEDS: NS + KCl 20mEq/L 1,000 ML IV SCH (02:27)
[2019-11-19] MEDS: Doxycycline 100 MG in Sodium Chloride 0.9% 100 ML IV SCH (03:38)
[2019-11-19] MEDS: Acetaminophen 325 MG Tab PO PRN (03:45)
[2019-11-19] MEDS: Citalopram 10 MG Tab PO SCH (08:03)
--- NOTE | 2019-11-19 10:31 | PCM.DCSUM1 ---
Discharge Summary - Hospital Course Brief History: Healthy 69-year-old female who presented with persistent fever, myalgia, nausea and vomiting. She was admitted for management of IV fluids and IV antibiotics in the setting of acute anaplasmosis infection. Diagnosis: Stroke: No - Discharge Data Discharge Date: 11/19/19 Discharge Disposition: Home, Self-Care 01 Condition: Good - Referral to Home Health Primary Care Physician: PCP None - Discharge Diagnosis/Problem(s) (1) Anaplasmosis SNOMED Code(s): 153895335 ICD Code: A77.49 - OTHER EHRLICHIOSIS Status: Acute Priority: High - Patient Summary/Data Consults: Consultations 11/17/19 19:45 Consult to Spiritual Care [CONS] Routine Hospital Course: Dani presented to the emergency room with weakness, nausea and vomiting. Work-up in the emergency room showed persistent leukopenia and thrombocytopenia as well as hypokalemia. She was unable to keep down her antibiotics to treat her suspected anaplasmosis. With her abnormal labs and symptoms she was also tested for COVID19. She was admitted to the hospital for electrolyte replacement, IV antibiotics and IV fluids. By the morning after admission she was feeling a little better but still did not have much of an appetite. Her nausea and vomiting had resolved. Her potassium level was improving. Her COVID test came back negative. We continued the IV fluids and IV antibiotics for another day. By the day of discharge she is feeling much better. Appetite is not great but she is eating and keeping foods and fluids down. She has not had any fevers. Her white blood cell count and platelets are improving but remain a little low. Potassium has normalized. Strength is much better. She feels safe and confident going home at this time. She will complete her antibiotic therapy for the presumed anaplasmosis. We did review potential side effects of the doxycycline including increased sensitivity of the skin to sunlight. - Patient Instructions Diet: Regular Diet as Tolerated Activity: As Tolerated Showering/Bathing: May Shower Notify Provider of: Fever, Increased Pain Other/Special Instructions: 1. You were in the hospital for management of anaplasmosis with symptoms including headache, myalgias, nausea, vomiting and weakness. Your condition has been improving with antibiotic therapy. I do recommend that you complete the course of antibiotics prescribed from the emergency room. You may use acetaminophen and/or ibuprofen for persistent aches and/or pains. You should continue to feel better each day but it may take a week or more to get back to full speed. It is important to note that the doxycycline can make your skin more sensitive to sunlight. You should wear protective clothing or sunscreen when you are out and about and taking the antibiotic. You could consider taking a probiotic twice daily while you are on the antibiotic to help reduce the risk of antibiotic associated diarrhea. - Discharge Plan *PRESCRIPTION DRUG MONITORING PROGRAM REVIEWED*: Not Applicable *COPY OF PRESCRIPTION DRUG MONITORING REPORT IN PATIENT ROSENDO: Not Applicable Prescriptions/Med Rec: Ondansetron [Zofran ODT] 4 mg PO Q6H PRN #20 tab.dis PRN Reason: Nausea Home Medications: Home Meds Citalopram [Citalopram HBr] 10 mg PO DAILY 10/19/17 [History] Doxycycline [Vibramycin] 1 tab PO DAILY 11/17/19 [History] Ondansetron [Zofran ODT] 4 mg PO Q6H PRN #20 tab.dis 11/19/19 [Rx] Oxygen Therapy Mode: Room Air Patient Handouts: Doxycycline tablets or capsules, Ehrlichiosis and Anaplasmosis Referrals: PCP,None [Primary Care Provider] - ( f/u with your primary care as needed if your symptoms do not continue to get better or if they get worse) - Discharge Summary/Plan Comment DC Time >30 min.: No - Patient Data Vitals - Most Recent: Last Vital Signs Temp 36.3 C 11/19/19 07:48 Pulse 72 11/19/19 07:48 Resp 16 11/19/19 07:48 BP 111/50 L 11/19/19 07:48 Pulse Ox 96 11/19/19 07:48 Weight - Most Recent: 61.235 kg I&O - Last 24 hours: Intake & Output 11/18/19 11/19/19 11/19/19 22:59 06:59 14:59 Intake Total 2202 1194 800 Output Total 1800 1500 700 Balance 402 -306 100 Lab Results - Last 24 hrs: Laboratory Results - last 24 hr 11/19/19 11/19/19 Range/Units 04:10 04:10 WBC 3.7 L (4.5-11.0) K/uL RBC 3.84 (3.30-5.50) M/uL Hgb 11.7 L (12.0-15.0) g/dL Hct 35.1 L (36.0-48.0) % MCV 91 (80-98) fL MCH 31 (27-31) pg MCHC 33 (32-36) % Plt Count 55 L (150-400) K/uL Sodium 142 (140-148) mmol/L Potassium 4.1 (3.6-5.2) mmol/L Chloride 107 (100-108) mmol/L Carbon Dioxide 27 (21-32) mmol/L Anion Gap 7.8 (5.0-14.0) mmol/L BUN 8 (7-18) mg/dL Creatinine 0.8 (0.6-1.0) mg/dL Est Cr Clr Drug Dosing 63.01 mL/min Estimated GFR (MDRD) > 60 (>60) Glucose 95 (74-106) mg/dL Calcium 7.9 L (8.5-10.1) mg/dL Med Orders - Current: Current Medications Acetaminophen (Tylenol) 650 mg PO Q4H PRN PRN Reason: Pain (Mild 1-3)/fever Last Admin: 11/19/19 03:45 Dose: 650 mg Documented by: Citalopram Hydrobromide (Celexa) 10 mg PO DAILY [facility] Last Admin: 11/19/19 08:03 Dose: 10 mg Documented by: Doxycycline Hyclate 100 mg/ (Sodium Chloride) 100 mls @ 100 mls/hr IV Q12H [facility] Last Admin: 11/19/19 03:38 Dose: 100 mls/hr Documented by: Potassium Chloride/Sodium Chloride (Normal Saline With 20 Meq Kcl) 1,000 mls @ 100 mls/hr IV ASDIRECTED [facility] Last Admin: 11/19/19 02:27 Dose: 100 mls/hr Documented by: Ketorolac Tromethamine (Toradol) 15 mg IVPUSH Q6H PRN PRN Reason: Pain (moderate 4-6) Stop: 11/22/19 21:29 Last Admin: 11/17/19 22:11 Dose: 15 mg Documented by: Melatonin (Melatonin) 6 mg PO BEDTIME [facility] Last Admin: 11/18/19 20:59 Dose: Not Given Documented by: Morphine Sulfate (Morphine) 2 mg IVPUSH Q2H PRN PRN Reason: Pain (severe 7-10) Ondansetron HCl (Zofran Odt) 4 mg PO Q6H PRN PRN Reason: Nausea able to take PO Last Admin: 11/18/19 12:46 Dose: 4 mg Documented by: Ondansetron HCl (Zofran) 4 mg IV Q4H PRN PRN Reason: Nausea/Vomiting Oxycodone HCl (Oxycodone) 5 mg PO Q4H PRN PRN Reason: Pain (moderate 4-6) Sodium Chloride (Saline Flush) 10 ml FLUSH ASDIRECTED PRN PRN Reason: Keep Vein Open Last Admin: 11/17/19 16:27 Dose: 10 ml Documented by: Discontinued Medications Enoxaparin Sodium (Lovenox) 30 mg SUBCUT DAILY [facility] Last Admin: 11/18/19 16:23 Dose: Not Given Documented by: Lactated Ringer's (Ringers, Lactated) 1,000 mls @ 999 mls/hr IV BOLUS ONE Stop: 11/17/19 17:03 Last Admin: 11/17/19 16:27 Dose: 999 mls/hr Documented by: Doxycycline Hyclate 100 mg/ (Sodium Chloride) 100 mls @ 100 mls/hr IV ONETIME ONE Stop: 11/17/19 17:03 Last Admin: 11/17/19 16:28 Dose: 100 mls/hr Documented by: Potassium Chloride 20 meq/ (Premix) 100 mls @ 50 mls/hr IV ONETIME ONE Stop: 11/17/19 18:59 Last Admin: 11/17/19 17:36 Dose: 50 mls/hr Documented by: Sodium Chloride (Normal Saline) 1,000 mls @ 125 mls/hr IV ASDIRECTED [facility] Last Admin: 11/18/19 12:46 Dose: 125 mls/hr Documented by: Ketorolac Tromethamine (Toradol) 30 mg IVPUSH Q6H PRN PRN Reason: Pain (moderate 4-6) Ondansetron HCl (Zofran) 4 mg IVPUSH ONETIME ONE Stop: 11/17/19 16:05 Last Admin: 11/17/19 16:27 Dose: 4 mg Documented by: Pantoprazole Sodium (Protonix Iv) 40 mg IVPUSH DAILY [facility] Last Admin: 11/17/19 20:17 Dose: 40 mg Documented by: Pantoprazole Sodium (Protonix Iv) 40 mg IVPUSH Q24H [facility] Potassium Chloride (Klor-Con M20) 40 meq PO ONETIME ONE Stop: 11/17/19 17:01 Last Admin: 11/17/19 17:35 Dose: 40 meq Documented by: Potassium Chloride (Klor-Con M20) 40 meq PO ONETIME ONE Stop: 11/18/19 09:31 Last Admin: 11/18/19 09:36 Dose: 40 meq Documented by:
[2019-11-19] MEDS: Ondansetron 4 MG Tab.DIS PO PRN (11:28)
== END 2019-11-19 12:00 | disposition home or self-care (01) | DRG 868 ==
LOC: JP.ED 15:01 → JP.MS 18:59
PROVIDERS: ADMIT Internal Medicine; ATTEND Internal Medicine
DX: A77.49 Other ehrlichiosis (principal); H54.7 Unspecified visual loss; E87.1 Hypo-osmolality and hyponatremia; Z79.899 Other long term (current) drug therapy; D69.6 Thrombocytopenia, unspecified; D72.819 Decreased white blood cell count, unspecified; E83.51 Hypocalcemia; Z20.828 Contact with and (suspected) exposure to other viral communicable diseases; E87.6 Hypokalemia; Z88.8 Allergy status to other drugs, medicaments and biological substances
CPT/HCPCS: 36415; 80053; 83605; 83615; 83735; 84145; 85025; 86140; A9270; J2405; J3480; J3490; J7050; J7120; 80048; 85027; 94762; 96361; 96365; 96375; 99284; 99284-25; C9113; J1885; J7030

== ENCOUNTER 2022-04-17 09:21 | Emergency (ER) | payer MEDICARE, OTHER ==
[2022-04-17] MEDS ORDERED: Meclizine 25 MG Tab PO ONE (11:23)
== END 2022-04-17 12:59 | disposition home or self-care (01) ==
LOC: JP.ED 09:21
DX: R42 Dizziness and giddiness (principal); Z91.048 Other nonmedicinal substance allergy status; Z88.8 Allergy status to other drugs, medicaments and biological substances
CPT/HCPCS: 93005; 99284; A9270